=== PATIENT | male | born 1985 | race African-American/Black ===

== ENCOUNTER 2022-05-05 15:07 | Emergency (ER) | payer SELFPAY ==
[~2022-05-05] VITALS: Ht 180.3 cm; Wt 56.7 kg
[2022-05-05 15:30] VITALS: BP 101/59
[2022-05-05] MEDS ORDERED: IBUP600T27 PO (17:00)
[2022-05-05] MEDS ORDERED: CLIN300C8 PO (17:00)
== END 2022-05-05 17:28 | disposition home or self-care (01) ==
LOC: ER 15:07
DX: J02.9 Acute pharyngitis, unspecified (principal); K04.7 Periapical abscess without sinus